=== PATIENT | female | born 1980 | race Caucasian/White ===

== ENCOUNTER 2017-10-04 08:16 | Inpatient (IN) ==
--- NOTE | 2017-10-04 09:27 | ED ---
HPI General Chief Complaint: Psychiatric Symptoms Stated Complaint: Psych Eval Time Seen by Provider: 10/05/17 12:35 History of Present Illness HPI Narrative: This patient is brought in under police Galdamez act. She is very challenging to manage or take care of. She was feeling suicidal and homicidal toward her ex-boyfriend. She is an IV drug user. She injected Dilaudid yesterday. Denies alcohol abuse. She has psychiatric problems but is not on her medications. Symptoms moderately severe. Symptoms exacerbated by drug use and noncompliance. No alleviating factors. Duration 1 week. She denies fever or physical complaints. Related Data Home Medications Medication Instructions Recorded Confirmed Klonopin 1 mg PO BID 10/04/17 10/04/17 Previous Rx's Medication Instructions Recorded cephalexin [Keflex] 500 mg PO BID 7 Days #14 cap 10/05/17 Allergies Allergy/AdvReac Type Severity Reaction Status Date / Time latex Allergy Intermediate Irritation Unverified 07/07/17 18:28 meperidine Allergy Intermediate Hives Unverified 07/07/17 18:28 risperidone Allergy Intermediate Hallucinati Unverified 07/07/17 18:28 ons divalproex sodium AdvReac Severe Hallucinati Unverified 07/07/17 18:28 ons acetaminophen AdvReac Intermediate HIVES Unverified 07/07/17 18:28 aripiprazole AdvReac Intermediate Hives Unverified 07/07/17 18:28 buspirone AdvReac Intermediate " I FEEL Unverified 07/07/17 18:28 STRANGE" hydrocodone AdvReac Intermediate HIVES Unverified 07/07/17 18:28 hydroxyzine AdvReac Intermediate HIVES Unverified 07/07/17 18:28 ketorolac AdvReac Intermediate Hives Unverified 07/07/17 18:28 quetiapine AdvReac Intermediate Seizures Unverified 07/07/17 18:28 tramadol AdvReac Intermediate HIVES Unverified 07/07/17 18:28 Review of Systems ROS: all other systems reviewed are negative [facility] Social History Social History Substance History: Active Abuse Smoking Status: Heavy tobacco smoker Tobacco Type: Cigarettes How Often Do You Have a Drink Containing Alcohol: Monthly or less Recent Travel in [facility] within the Last 8 Weeks: No Recent Out of Country Travel within the Last 8 Weeks: No Immunization History Tetanus Immunization: <5 Years Exam Narrative Exam Narrative: GENERAL: Disheveled well-developed patient in no apparent distress. SKIN: Focused skin assessment reveals no rash and nodules. Skin is Warm and dry. Has some scabbed lesions on her face. HEAD: Atraumatic. Normocephalic. EYES: Pupils equal and round. No scleral icterus. No injection or drainage. ENT: No nasal bleeding or discharge. Mucous membranes pink and moist. NECK: Trachea midline. No JVD. CARDIOVASCULAR: Regular rate and rhythm. No murmur appreciated. RESPIRATORY: No accessory muscle use. Clear to auscultation. Breath sounds equal bilaterally. GASTROINTESTINAL: Abdomen soft, non-tender, nondistended. Hepatic and splenic margins not palpable. MUSCULOSKELETAL: No obvious deformities. No clubbing. No cyanosis. No edema. NEUROLOGICAL: Awake and alert. No obvious cranial nerve deficits. Motor grossly within normal limits. Normal speech. PSYCHIATRIC: Agitated and uncooperative mood and affect; insight and judgment poor. Course Initial Documented Vital Signs Temperature 97.7 F 10/04/17 08:26 Pulse Rate 93 H 10/04/17 08:26 Respiratory Rate 22 10/04/17 08:26 Blood Pressure 132/82 10/04/17 08:26 Pulse Oximetry 97 10/04/17 08:26 Last Documented Vital Signs Temperature 97.7 F 10/06/17 05:43 Pulse Rate 84 10/06/17 05:43 Respiratory Rate 17 10/06/17 05:43 Blood Pressure 112/75 10/06/17 05:43 Pulse Oximetry 99 10/05/17 21:34 Medical Decision Making [facility] Narrative Medical decision making narrative: I have ordered some lab and urine studies to assist with medical clearance. However the patient is very uncooperative. She actively resists and refuses any type of testing. She will not allow blood work. She will not allow IV placement. She is very demanding and uncooperative. I have ordered psychiatric evaluation as she is here under Galdamez act. Given her active and persistent refusal and uncooperative nature and the fact that she is going to be a very challenging IV stick given her IV drug use history, we may not able to readily obtain studies. 10/05/2017 1135: Patient complaining of right ear pain. I examined the right ear and there are no signs of infection. Right ear exam is unremarkable. Patient was complaining of urinary symptoms and a urinalysis shows signs of infection and reflex to culture. Keflex ordered twice daily for her hospital stay 7 days and Keflex prescribed for home if patient is discharged A few hours later the patient has consented to studies and CBC and metabolic profile were drawn and normal. Patient's vital signs are normal. She is is medically stable as can be made. She will get psychiatric evaluation and disposition per psychiatry. Medical Records Medical records reviewed: Yes I reviewed the patient's medical records. Lab Data Result diagrams: 10/04/17 11:43 10/04/17 11:43 Lab Results 10/04/17 10/04/17 10/04/17 Range/Units 11:43 11:43 14:50 WBC 10.5 (4.0-11.0) th/mm3 RBC 4.35 (4.00-5.30) mil/mm3 Hgb 13.5 (11.6-15.3) gm/dL Hct 39.2 (35.0-46.0) % MCV 90.1 (80.0-100.0) fL MCH 31.1 (27.0-34.0) pg MCHC 34.5 (32.0-36.0) % RDW 12.9 (11.6-17.2) % Plt Count 297 (150-450) th/mm3 MPV 7.4 (7.0-11.0) fL Neut % (Auto) 69.4 (16.0-70.0) % Lymph % (Auto) 19.6 (9.0-44.0) % Grand % (Auto) 9.0 H (0.0-8.0) % Eos % (Auto) 1.6 (0.0-4.0) % Baso % (Auto) 0.4 (0.0-2.0) % Neut # (Auto) 7.3 (1.8-7.7) th/mm3 Lymph # (Auto) 2.1 (1.0-4.8) th/mm3 Grand # (Auto) 0.9 (0.0-0.9) th/mm3 Eos # (Auto) 0.2 (0.0-0.4) th/mm3 Baso # (Auto) 0.0 (0.0-0.2) th/mm3 WBC Differential . Differential Comment Auto diff final Sodium 137 (136-145) meq/L Potassium 3.5 (3.5-5.1) meq/L Chloride 106 (98-107) meq/L Carbon Dioxide 22.1 (21.0-32.0) meq/L Anion Gap 9 (5-15) meq/L BUN 10 (7-18) mg/dL Creatinine 0.62 (0.50-1.00) mg/dL Estimated GFR Greater than 89 (>89) mL/min Random Glucose 87 (74-106) mg/dL Calcium 8.6 (8.5-10.1) mg/dL Total Bilirubin 0.8 (0.2-1.0) mg/dL AST 25 (15-37) U/L ALT 26 (10-53) U/L Alkaline Phosphatase 81 (45-117) U/L Total Protein 7.9 (6.4-8.2) g/dL Albumin 3.8 (3.4-5.0) g/dL TSH 0.452 (0.358-3.740) uIU/mL Urine Color (Yellw/Straw) Urine Clarity (Clear) Urine pH (5.0-8.5) Ur Specific [place] (1.002-1.035) Urine Protein (Neg-Trace) mg/dL Urine Glucose (UA) (Negative) mg/dL Urine Ketones (Negative) mg/dL Urine Occult Blood (Negative) Urine Nitrate (Negative) Urine Bilirubin (Negative) Urine Urobilinogen (Less than 2) mg/dL Ur Leukocyte Esterase (Negative) Urine RBC (0-3) /hpf Urine WBC (0-5) /hpf Ur Squamous Epith Cells (0-5) /hpf Urine Bacteria (None) /hpf Urine Mucus (Occasional) /lpf Micro UA Comment Urine Culture Comments Urine Opiates Screen Pos H (Neg) Ur Barbiturates Screen Pos H (Neg) Ur Amphetamines Screen Neg (Neg) U Benzodiazepines Scrn Neg (Neg) Urine Cocaine Screen Neg (Neg) U Cannabinoids Screen Pos H (Neg) Serum Alcohol Less than 3 (0-5) mg/dL 10/05/17 Range/Units 10:00 WBC (4.0-11.0) th/mm3 RBC (4.00-5.30) mil/mm3 Hgb (11.6-15.3) gm/dL Hct (35.0-46.0) % MCV (80.0-100.0) fL MCH (27.0-34.0) pg MCHC (32.0-36.0) % RDW (11.6-17.2) % Plt Count (150-450) th/mm3 MPV (7.0-11.0) fL Neut % (Auto) (16.0-70.0) % Lymph % (Auto) (9.0-44.0) % Grand % (Auto) (0.0-8.0) % Eos % (Auto) (0.0-4.0) % Baso % (Auto) (0.0-2.0) % Neut # (Auto) (1.8-7.7) th/mm3 Lymph # (Auto) (1.0-4.8) th/mm3 Grand # (Auto) (0.0-0.9) th/mm3 Eos # (Auto) (0.0-0.4) th/mm3 Baso # (Auto) (0.0-0.2) th/mm3 WBC Differential Differential Comment Sodium (136-145) meq/L Potassium (3.5-5.1) meq/L Chloride (98-107) meq/L Carbon Dioxide (21.0-32.0) meq/L Anion Gap (5-15) meq/L BUN (7-18) mg/dL Creatinine (0.50-1.00) mg/dL Estimated GFR (>89) mL/min Random Glucose (74-106) mg/dL Calcium (8.5-10.1) mg/dL Total Bilirubin (0.2-1.0) mg/dL AST (15-37) U/L ALT (10-53) U/L Alkaline Phosphatase (45-117) U/L Total Protein (6.4-8.2) g/dL Albumin (3.4-5.0) g/dL TSH (0.358-3.740) uIU/mL Urine Color Yellow (Yellw/Straw) Urine Clarity Hazy H (Clear) Urine pH 6.0 (5.0-8.5) Ur Specific [place] 1.006 (1.002-1.035) Urine Protein Negative (Neg-Trace) mg/dL Urine Glucose (UA) Negative (Negative) mg/dL Urine Ketones Trace H (Negative) mg/dL Urine Occult Blood Moderate H (Negative) Urine Nitrate Positive H (Negative) Urine Bilirubin Negative (Negative) Urine Urobilinogen Less than 2 (Less than 2) mg/dL Ur Leukocyte Esterase Small H (Negative) Urine RBC 1 (0-3) /hpf Urine WBC 13 H (0-5) /hpf Ur Squamous Epith Cells 2 (0-5) /hpf Urine Bacteria Many H (None) /hpf Urine Mucus Few H (Occasional) /lpf Micro UA Comment Culture indicated Urine Culture Comments Culture indicated Urine Opiates Screen (Neg) Ur Barbiturates Screen (Neg) Ur Amphetamines Screen (Neg) U Benzodiazepines Scrn (Neg) Urine Cocaine Screen (Neg) U Cannabinoids Screen (Neg) Serum Alcohol (0-5) mg/dL Discharge Plan Discharge Disposition Patient Disposition: 30 Still Patient Discharge Details Diagnosis: Suicidal ideation Physicians Team ED Provider: Ryan Granado Primary Care Provider: Primary Care Kelly Becerril Attending Provider: Johnathan Peña Discharge Interventions Interventions: ED Discharge Assessment Last Done: 10/05/17 21:35 Status ED Status: Left Department Discharge Information Discharge Date/Time: 10/05/17 20:45
[2017-10-04 12:01] LABS: Baso % (Auto) 0.4 % (0.0-2.0); Eos # (Auto) 0.2 th/mm3 (0.0-0.4); Eos % (Auto) 1.6 % (0.0-4.0); Hematocrit 39.2 % (35.0-46.0); Hemoglobin 13.5 gm/dL (11.6-15.3); Lymph # (Auto) 2.1 th/mm3 (1.0-4.8); Lymph % (Auto) 19.6 % (9.0-44.0); Mean Corpuscular HGB Conc 34.5 % (32.0-36.0); Mean Corpuscular Hemoglobin 31.1 pg (27.0-34.0); Mean Corpuscular Volume 90.1 fL (80.0-100.0); Mean Platelet Volume 7.4 fL (7.0-11.0); Mono # (Auto) 0.9 th/mm3 (0.0-0.9); Neut # (Auto) 7.3 th/mm3 (1.8-7.7); Neut % (Auto) 69.4 % (16.0-70.0); Platelet Count 297 th/mm3 (150-450); Red Blood Count 4.35 mil/mm3 (4.00-5.30); Red Cell Distribution Width 12.9 % (11.6-17.2); White Blood Count 10.5 th/mm3 (4.0-11.0)
[2017-10-04 12:33] LABS: Alanine Aminotransferase 26 U/L (10-53); Albumin 3.8 g/dL (3.4-5.0); Anion Gap 9 meq/L (5-15); Aspartate Aminotransferase 25 U/L (15-37); Blood Urea Nitrogen 10 mg/dL (7-18); Calcium 8.6 mg/dL (8.5-10.1); Carbon Dioxide 22.1 meq/L (21.0-32.0); Chloride 106 meq/L (98-107); Glomerular Filtration Rate Greater Than 89 mL/min (>89); Glucose,Random 87 mg/dL (74-106); Potassium 3.5 meq/L (3.5-5.1); Sodium 137 meq/L (136-145)
[2017-10-04 12:44] LABS: Alkaline Phosphatase 81 U/L (45-117); Thyroid Stimulating Hormone 0.452 uIU/mL (0.358-3.740); Total Protein 7.9 g/dL (6.4-8.2)
[2017-10-04 15:27] LABS: Amphetamine Screen,Urine Neg (Neg); Barbiturate Screen,Urine Pos (Neg); Cannabinoid Screen,Urine Pos (Neg); Cocaine Screen,Urine Neg (Neg)
[2017-10-04 15:28] LABS: Opiate Screen,Urine Pos (Neg)
[2017-10-05 10:27] LABS: Bacteria,Urine Many /hpf; Bilirubin,Urine Negative (Negative); Clarity,Urine Hazy (Clear); Color,Urine Yellow (Yellw/Straw); Glucose,Urine (UA) Negative (Negative); Leukocyte Esterase,Urine Small (Negative); Mucus,Urine Few /lpf (Occasional); Nitrite,Urine Positive (Negative); Specific Gravity,Urine 1.006 (1.002-1.035); Squamous Epithelial Cell,Urine 2 /hpf (0-5)
--- NOTE | 2017-10-05 13:04 | ED ---
HPI - Psych - General Source: patient, old records reviewed Mode of arrival: ambulatory Limitations: no limitations - History of Present Illness MD complaint: suicidal ideation Onset (ago): day(s) Duration: constant History of same: Yes Relieving factors: none Exacerbating factors: drug use Context: recent drug abuse Associated psychiatric symptoms: depression, homicidal ideation, racing thoughts , auditory hallucinations Associated symptoms: other (ear pain) Treatments prior to arrival: none If self harm: admits thoughts of self harm - General Chief Complaint: Psychiatric Symptoms Stated Complaint: Psych Eval Time Seen by Provider: 10/05/17 12:35 - History of Present Illness HPI Narrative: Patient is a 37-year-old woman, single, unemployed on SSD, with a past psychiatric history of bipolar disorder, depression and anxiety, multiple previous psychiatric admissions (last time being in June of this year here at [facility] ), no previous suicide attempt or self-injurious behavior, with a substance use history significant for polysubstance use disorder, with no significant past medical history who presents under a Galdamez act alleging she was planning the murder of her ex boyfriend and then to kill herself. She is supposed to be on medications but does not have them with her". EMR reviewed. Currently dx with UTI and has been started on antibiotic s. Current toxicology is positive for opiates, amphetamines and cannabinoids. She admits to having used Adderall as well as a pain pill 2 days ago. Denies that she is using methamphetamine. Patient is seen in J pod. Awake, alert, oriented, disheveled appearance. Easily agitated, restless.Patient with facial grimacing noted. She states" I was diagnosed with EPS while I was in care home . It was due to medication". Patient is tearful at times. Speech is clear and logical. Mood is labile with sadness , irritability, anger. Does not appear to be responding to internal stimuli but reports hearing her name called as well as " seeing people that are not there". She continues to endorse feeling suicidal with no current plan. In terms of psychiatric treatment she has been receiving Klonopin 1 mg po BID and is prescribed by her PCP , Dr. Kumar. She denies overusing this medication and states " That is not my drug of choice and I do not abuse them ". She stopped the Cymbalta due to reports that it made her feel more aggressive. In terms of substance use she staes she has been clean for the past few months and used 2 days ago". (Kerline Mercado) - Related Data Home Medications Medication Instructions Recorded Confirmed Klonopin 1 mg PO BID 10/04/17 10/04/17 Previous Rx's Medication Instructions Recorded cephalexin [Keflex] 500 mg PO BID 7 Days #14 cap 10/05/17 Allergies Allergy/AdvReac Type Severity Reaction Status Date / Time latex Allergy Intermediate Irritation Unverified 07/07/17 18:28 meperidine Allergy Intermediate Hives Unverified 07/07/17 18:28 risperidone Allergy Intermediate Hallucinati Unverified 07/07/17 18:28 ons divalproex sodium AdvReac Severe Hallucinati Unverified 07/07/17 18:28 ons acetaminophen AdvReac Intermediate HIVES Unverified 07/07/17 18:28 aripiprazole AdvReac Intermediate Hives Unverified 07/07/17 18:28 buspirone AdvReac Intermediate " I FEEL Unverified 07/07/17 18:28 STRANGE" hydrocodone AdvReac Intermediate HIVES Unverified 07/07/17 18:28 hydroxyzine AdvReac Intermediate HIVES Unverified 07/07/17 18:28 ketorolac AdvReac Intermediate Hives Unverified 07/07/17 18:28 quetiapine AdvReac Intermediate Seizures Unverified 07/07/17 18:28 tramadol AdvReac Intermediate HIVES Unverified 07/07/17 18:28 PMFSH - History History Provided By: Law Enforcement - Medical History Medical History: Medical History (Last Updated 10/04/17 @ 08:31 by Cornelio Gama RN) ADD (attention deficit disorder) Anxiety Bipolar disorder Depression PTSD (post-traumatic stress disorder) - Tobacco History Tobacco Use In Past 30 Days: Yes Smoking Status: Current every day smoker Tobacco Type: Cigarettes - Alcohol History How Often Do You Have a Drink Containing Alcohol: 4 or more times a week - Substance Use History Substance History: Active Abuse - Travel History Recent Travel in the [place] Within the Last 8 Weeks: No Recent Travel Out of the Country Within the Last 8 Weeks: No - Immunization History Tetanus Immunization: <5 Years Psychiatric History - Psychiatric History Psychiatric Treatment History: History of Psychiatric Treatment, History Substance Abuse Treatment, History of Hospitalization in a Psychiatric Facility History of Inpatient Treatment: Yes Firearms in Home: No - Psychiatric History Has had previous psychiatric admissions last one here at [facility] in June 2107. Currently receiving medication from her PCP. (Kerline Mercado) - Legal History Past incarceration and released in june 2017. (Kerline Mercado) - Family Psychiatric History Mother with hx of bipolar disorder (Mercado,Kerline) Mental Status Examination Appearance: Disheveled Consciousness: Alert Orientation: x4 Motor Activity: Normal gait Speech: Rapid Language: Adequate Fund of Knowledge: Adequate Attention and Concentration: Inadequate Memory: Unremarkable Mood: Sad, Irritable, Other (labile) Affect: Labile Thought Process & Associations: Intact Thought Content: Hallucinations (reports hears her name called), Racing thoughts Hallucination Type: Auditory Delusion Type: None Suicidal Ideation: Yes Suicidal Plan: No Suicidal Intention: No Homicidal Ideation: Yes Homicidal Plan: No Homicidal Intention: No Insight: Poor Judgment: Impulsive Initial Documented Vital Signs Temperature 97.7 F 10/04/17 08:26 Pulse Rate 93 H 10/04/17 08:26 Respiratory Rate 22 10/04/17 08:26 Blood Pressure 132/82 10/04/17 08:26 Pulse Oximetry 97 10/04/17 08:26 Last Documented Vital Signs Temperature 98.3 F 10/05/17 03:14 Pulse Rate 94 H 10/05/17 03:14 Respiratory Rate 18 10/05/17 03:14 Blood Pressure 113/83 10/05/17 03:14 Pulse Oximetry 98 10/05/17 03:14 MDM - Psych - Diagnosis (1) Bipolar disorder Status: Acute (2) Substance induced mood disorder Status: Acute (3) Substance abuse Status: Acute - Lab Data Result diagrams: 10/04/17 11:43 10/04/17 11:43 - [facility] Narrative Medical decision making narrative: 37-year-old female with history of bipolar disorder, depression, anxiety, substance use disorder who is under a Galdamez act for both having reported planning the murder of her ex-boyfriend as well as then planning to kill herself. Patient with recent relapse and used amphetamines as well as opioids. She continues to endorse lability of mood with agitation, racing thoughts, auditory hallucinations, suicidal ideation, homicidal ideation towards her ex- boyfriend, and in contacts of recent drug use as well as not having her psychiatric medication. Patient will be admitted to inpatient psychiatric unit for further observation, for safety, for stabilization. (Kerline Mercado) - Lab Data Lab Results 10/04/17 10/04/17 10/04/17 Range/Units 11:43 11:43 14:50 WBC 10.5 (4.0-11.0) th/mm3 RBC 4.35 (4.00-5.30) mil/mm3 Hgb 13.5 (11.6-15.3) gm/dL Hct 39.2 (35.0-46.0) % MCV 90.1 (80.0-100.0) fL MCH 31.1 (27.0-34.0) pg MCHC 34.5 (32.0-36.0) % RDW 12.9 (11.6-17.2) % Plt Count 297 (150-450) th/mm3 MPV 7.4 (7.0-11.0) fL Neut % (Auto) 69.4 (16.0-70.0) % Lymph % (Auto) 19.6 (9.0-44.0) % Grand % (Auto) 9.0 H (0.0-8.0) % Eos % (Auto) 1.6 (0.0-4.0) % Baso % (Auto) 0.4 (0.0-2.0) % Neut # (Auto) 7.3 (1.8-7.7) th/mm3 Lymph # (Auto) 2.1 (1.0-4.8) th/mm3 Grand # (Auto) 0.9 (0.0-0.9) th/mm3 Eos # (Auto) 0.2 (0.0-0.4) th/mm3 Baso # (Auto) 0.0 (0.0-0.2) th/mm3 WBC Differential . Differential Comment Auto diff final Sodium 137 (136-145) meq/L Potassium 3.5 (3.5-5.1) meq/L Chloride 106 (98-107) meq/L Carbon Dioxide 22.1 (21.0-32.0) meq/L Anion Gap 9 (5-15) meq/L BUN 10 (7-18) mg/dL Creatinine 0.62 (0.50-1.00) mg/dL Estimated GFR Greater than 89 (>89) mL/min Random Glucose 87 (74-106) mg/dL Calcium 8.6 (8.5-10.1) mg/dL Total Bilirubin 0.8 (0.2-1.0) mg/dL AST 25 (15-37) U/L ALT 26 (10-53) U/L Alkaline Phosphatase 81 (45-117) U/L Total Protein 7.9 (6.4-8.2) g/dL Albumin 3.8 (3.4-5.0) g/dL TSH 0.452 (0.358-3.740) uIU/mL Urine Color (Yellw/Straw) Urine Clarity (Clear) Urine pH (5.0-8.5) Ur Specific [place] (1.002-1.035) Urine Protein (Neg-Trace) mg/dL Urine Glucose (UA) (Negative) mg/dL Urine Ketones (Negative) mg/dL Urine Occult Blood (Negative) Urine Nitrate (Negative) Urine Bilirubin (Negative) Urine Urobilinogen (Less than 2) mg/dL Ur Leukocyte Esterase (Negative) Urine RBC (0-3) /hpf Urine WBC (0-5) /hpf Ur Squamous Epith Cells (0-5) /hpf Urine Bacteria (None) /hpf Urine Mucus (Occasional) /lpf Micro UA Comment Urine Culture Comments Urine Opiates Screen Pos H (Neg) Ur Barbiturates Screen Pos H (Neg) Ur Amphetamines Screen Neg (Neg) U Benzodiazepines Scrn Neg (Neg) Urine Cocaine Screen Neg (Neg) U Cannabinoids Screen Pos H (Neg) Serum Alcohol Less than 3 (0-5) mg/dL 10/05/17 Range/Units 10:00 WBC (4.0-11.0) th/mm3 RBC (4.00-5.30) mil/mm3 Hgb (11.6-15.3) gm/dL Hct (35.0-46.0) % MCV (80.0-100.0) fL MCH (27.0-34.0) pg MCHC (32.0-36.0) % RDW (11.6-17.2) % Plt Count (150-450) th/mm3 MPV (7.0-11.0) fL Neut % (Auto) (16.0-70.0) % Lymph % (Auto) (9.0-44.0) % Grand % (Auto) (0.0-8.0) % Eos % (Auto) (0.0-4.0) % Baso % (Auto) (0.0-2.0) % Neut # (Auto) (1.8-7.7) th/mm3 Lymph # (Auto) (1.0-4.8) th/mm3 Grand # (Auto) (0.0-0.9) th/mm3 Eos # (Auto) (0.0-0.4) th/mm3 Baso # (Auto) (0.0-0.2) th/mm3 WBC Differential Differential Comment Sodium (136-145) meq/L Potassium (3.5-5.1) meq/L Chloride (98-107) meq/L Carbon Dioxide (21.0-32.0) meq/L Anion Gap (5-15) meq/L BUN (7-18) mg/dL Creatinine (0.50-1.00) mg/dL Estimated GFR (>89) mL/min Random Glucose (74-106) mg/dL Calcium (8.5-10.1) mg/dL Total Bilirubin (0.2-1.0) mg/dL AST (15-37) U/L ALT (10-53) U/L Alkaline Phosphatase (45-117) U/L Total Protein (6.4-8.2) g/dL Albumin (3.4-5.0) g/dL TSH (0.358-3.740) uIU/mL Urine Color Yellow (Yellw/Straw) Urine Clarity Hazy H (Clear) Urine pH 6.0 (5.0-8.5) Ur Specific [place] 1.006 (1.002-1.035) Urine Protein Negative (Neg-Trace) mg/dL Urine Glucose (UA) Negative (Negative) mg/dL Urine Ketones Trace H (Negative) mg/dL Urine Occult Blood Moderate H (Negative) Urine Nitrate Positive H (Negative) Urine Bilirubin Negative (Negative) Urine Urobilinogen Less than 2 (Less than 2) mg/dL Ur Leukocyte Esterase Small H (Negative) Urine RBC 1 (0-3) /hpf Urine WBC 13 H (0-5) /hpf Ur Squamous Epith Cells 2 (0-5) /hpf Urine Bacteria Many H (None) /hpf Urine Mucus Few H (Occasional) /lpf Micro UA Comment Culture indicated Urine Culture Comments Culture indicated Urine Opiates Screen (Neg) Ur Barbiturates Screen (Neg) Ur Amphetamines Screen (Neg) U Benzodiazepines Scrn (Neg) Urine Cocaine Screen (Neg) U Cannabinoids Screen (Neg) Serum Alcohol (0-5) mg/dL
[2017-10-05] MEDS ORDERED: clonazePAM 1 MG Tablet PO ONE (13:09)
[2017-10-05] MEDS ORDERED: Aluminum/Magnesium/Simethacone Susp 30 ML UDC PO PRN (13:39)
[2017-10-05] MEDS: Ibuprofen 600 MG Tablet PO SCH ×2 (13:48→21:33)
[2017-10-06] MEDS: Ibuprofen 600 MG Tablet PO SCH ×3 (05:26→21:27)
[2017-10-06] MEDS ORDERED: Aluminum/Magnesium/Simethacone Susp 30 ML UDC PO PRN (13:29)
[2017-10-06] MEDS ORDERED: Acetaminophen 325 MG Tablet PO PRN (13:29)
--- NOTE | 2017-10-06 13:59 | ECG ---
Date Performed: 10/06/2017 Time Performed: 13:37:56 PTAGE: 37 years EKG: Sinus rhythm WITH SHORT KS INTERVAL BORDERLINE ECG PREVIOUS TRACING : 07/09/2017 13.39 No significant change from previous tracing noted. DOCTOR: Michael Mathur Interpretating Date/Time 10/06/2017 13:58:08
--- NOTE | 2017-10-06 14:00 | P.HPPSY ---
Provisional Diagnosis Admission Date: October 05, 2017 13:39 [place] I.: Borderline personality disorder/trait, adjustment disorder with mixed disturbance of emotion and conduct, substance abuse, substance-induced mood disorder Competence Certification of Person's Competence To Provide Express and Informed Consent I have personally examined Ashia Mitchell, a person being served at [facility] on, October 06, 2017 1341. Express and informed consent means consent voluntarily given in writing, by a competent person, after sufficient explanation and disclosure of the subject matter involved to enable the person to make a knowing and willful decision without any element of force, fraud, deceit, duress, or other form of constraint or coercion. This person is 18 years of age or older, is not now known to be incompetent to consent to treatment with a guardian advocate, and does not have a health care surrogate or proxy currently making medical treatment decisions. I have found this person to be one of the following: [] Competent to provide express and informed consent, as defined above, for voluntary admission to this facility and is competent to provide express and informed consent for treatment. He/she has the consistent capacity to make well reasoned, willful, and knowing decisions concerning his or her medical or mental health treatment. The person fully and consistently understands the purpose of the admission for examination/placement and is fully capable of personally exercising all rights assured [place] [] Incompetent to provide express and informed consent to voluntary admission, and this is incompetent to provide express and informed consent to treatment. The person must be transferred to involuntary status and a petition for a guardian advocate filed with the Circuit Court. [xxxx] Refusing to provide express and informed consent to voluntary admission but is competent to provide express and informed consent for treatment. The person must be discharged or transferred to involuntary status. Form shall be completed within 24 hours of a person's arrival at the receiving facility and filed in the clinical record of each person: 1. Admitted on a voluntary basis 2. Permitted to provide express and informed consent to his/her own treatment 3. Allowed to transfer from involuntary to voluntary status 4. Prior to permitting a person to consent to his or her own treatment after having been previously found incompetent to consent to treatment. History of Present Illness Capacity: Lacks capacity (Patient lacks capacity sign for hospitalization patient has capacity to sign for medication) History of Present Illness: Patient is a 37-year-old white female comes here under [employer] act from [place] [employer] dated 02/09 it was sober for 5 AM that document reviewed essentially states contact was made with Ashia Mitchell who advice she was planning the murder of her ex-boyfriend and then to kill herself and is says she is supposed to be on medications but does not have them anymore. Patient seen and screened in the ED urine toxicology positive for opiates and barbiturates and marijuana. Review of our EMR shows patient has had multiple visits to this hospital she has had multiple episodes of positive urine toxicology use ranging from opiates to benzodiazepines and amphetamines cocaine. Patient states she has been disappointed by various men and relationships in her life starting with the breakup of a man who was her boyfriend then became her friend of the left her. She reluctantly acknowledges multiple incarcerations most recently being 9 months for a drug type offense getting out in June of this year. Going to stay with a boyfriend and his family house. He was arrested and put back in custodial for violation of probation she was then asked to supply money to the family house which she did not do led to her becoming somewhat homeless it appears she did call an ex-boyfriend they had did alliance party together leading to the positive toxicology she states it is only for 1 or 2 days. She states a past history of detox and rehab. She states she has had episodes of sobriety in the past when initially discussed with her she denied any past psychiatric hospitalization solely psychiatric in nature. Later in the conversation she said she had been at patient through [facility] been on multiple various antipsychotics and atypical antipsychotics and medication which is led to her developing seizure disorders and various other long-term issues. Patient taking no accountability for her behaviors or her addictions. She does states she still has a desire to kill her boyfriend and the perhaps kill herself. All she does deny voices she is vague about suicidality she is markedly labile irritable demanding and quite profane. She also appears somewhat entitled asking for help but also demanding of the help that she would like stating that her primary care doctor no longer be prescribing her Klonopin that some other doctors in the area who was prescribing her Adderall may and may not be doing that also. However then she states she would like to go to a sober living facility. When I suggested that she would perhaps benefit from an antidepressant and perhaps an atypical antipsychotic to help her with her anxiety and agitation she quickly became aggressive and angry stating that was all psychiatrist fall from placement on various medications that caused her to be where she is. She does states she would be willing to talk to her counselor related to finding his sober living. Thus at this time I feel patient continues to meet criteria for involuntary psychiatric hospitalization I will do first opinion request second opinion. I feel she does have capacity to sign for medications we will refrain from opiates and benzodiazepines or other substances of abuse. We will offer her Benadryl. I attempted to offer her Atarax but when I explained that he was similar to visual she said she cannot take that because that gives her seizures. Less we will offer her Benadryl and Tylenol. We will have our counselor talk with her about sober living facilities. R - Inpatient Certification I certify that the inpatient services were ordered in accordance with Medicare regulations governing the order. This includes certification that hospital inpatient services are reasonable and necessary and in the case of services not specified as inpatient-only under 42 CFR 419.22(n), that they are appropriately provided as inpatient services in accordance to with the 2-midnight benchmark under 43 CFR 412.3(e) I certify that inpatient psychiatric hospital services are medically necessary. Evaluation and treatment and/or diagnostic testing are expected to improve the patient's condition. The patient needs on a daily basis, active treatment furnished directly by or requiring the supervision of inpatient psychiatric facility personnel. Estimated Total Length of Stay (Days): 5 Plans for Post Hospital Care: Home Review of Systems All other systems reviewed negative except as stated in HPI Ears, Nose, Mouth, and Throat: Reports facial pain PMFSH - History History Provided By: Patient - Medical History Medical History: Medical History (Last Reviewed 10/06/17 @ 03:24 by Lakshmi Valentine RN) ADD (attention deficit disorder) Anxiety Bipolar disorder Depression PTSD (post-traumatic stress disorder) - Tobacco History Tobacco Use In Past 30 Days: Yes Smoking Status: Heavy tobacco smoker Tobacco Type: Cigarettes - Alcohol History How Often Do You Have a Drink Containing Alcohol: Monthly or less - Substance Use History Substance History: Active Abuse - Travel History Recent Travel in the [place] Within the Last 8 Weeks: No Recent Travel Out of the Country Within the Last 8 Weeks: No - Immunization History Tetanus Immunization: <5 Years Quality Measures - Psychiatric History Psychological trauma history: Patient is had multiple incarcerations Violence risk to others in the last 6 months: Patient states she wanted to kill her boyfriend Violence risk to self in the last 6 months: Patient suicidal - Substance Abuse History Drug or alcohol use in the past 12 months: Patient long history of polysubstance abuse is positive for opiates barbiturates and marijuana - Patient Strengths Patient's strengths (minimum of 2): Patient verbal able access healthcare Medications and Allergies Active Medications: Active Medications Acetaminophen (Tylenol) 650 mg PO Q4H PRN PRN Reason: Pain 1-5 or Temp >101F Al Hydrox/Mg Hydrox/Simethicone (Mag-Al Plus Susp Liq) 30 ml PO Q6H PRN PRN Reason: DYSPEPSIA Al Hydrox/Mg Hydrox/Simethicone (Mag-Al Plus Susp Liq) 30 ml PO Q6H PRN PRN Reason: DYSPEPSIA Al Hydroxide/Mg Hydroxide (Milk Of Magnesia Liq) 30 ml PO Q12H PRN PRN Reason: Mild Constipation Al Hydroxide/Mg Hydroxide (Milk Of Magnesia Liq) 30 ml PO Q12H PRN PRN Reason: Mild Constipation Cephalexin Monohydrate (Keflex) 500 mg PO BID [facility] Stop: 10/12/17 11:29 Last Admin: 10/06/17 10:31 Dose: 500 mg Diphenhydramine HCl (Benadryl) 50 mg PO Q6H PRN PRN Reason: For mild anxiety and/or EPS Diphenhydramine HCl (Benadryl) 50 mg PO HS PRN PRN Reason: INSOMNIA Ibuprofen (Motrin) 600 mg PO Q8HR [facility] Last Admin: 10/06/17 05:26 Dose: 600 mg Allergies Allergy/AdvReac Type Severity Reaction Status Date / Time latex Allergy Intermediate Irritation Unverified 07/07/17 18:28 meperidine Allergy Intermediate Hives Unverified 07/07/17 18:28 risperidone Allergy Intermediate Hallucinati Unverified 07/07/17 18:28 ons divalproex sodium AdvReac Severe Hallucinati Unverified 07/07/17 18:28 ons acetaminophen AdvReac Intermediate HIVES Unverified 07/07/17 18:28 aripiprazole AdvReac Intermediate Hives Unverified 07/07/17 18:28 buspirone AdvReac Intermediate " I FEEL Unverified 07/07/17 18:28 STRANGE" hydrocodone AdvReac Intermediate HIVES Unverified 07/07/17 18:28 hydroxyzine AdvReac Intermediate HIVES Unverified 07/07/17 18:28 ketorolac AdvReac Intermediate Hives Unverified 07/07/17 18:28 quetiapine AdvReac Intermediate Seizures Unverified 07/07/17 18:28 tramadol AdvReac Intermediate HIVES Unverified 07/07/17 18:28 Home Medications Medication Instructions Recorded Confirmed Type Klonopin 1 mg PO BID 10/04/17 10/04/17 History Results - Labs CBC & Chem 7: 10/04/17 11:43 10/04/17 11:43 Exam Vital signs: Vital Signs 10/05/17 15:00 10/05/17 21:00 10/05/17 21:34 Temperature 98.7 F 97.6 F Pulse Rate 95 H 80 Respiratory Rate 20 18 Blood Pressure 100/94 H 121/60 Pulse Oximetry 97 99 10/06/17 05:43 Temperature 97.7 F Pulse Rate 84 Respiratory Rate 17 Blood Pressure 112/75 Pulse Oximetry Intake & Output 10/05/17 10/06/17 10/06/17 18:59 06:59 18:59 Weight 64.4 kg Other: Weight On Admission 64.4 kg Narrative: Patient sitting on her bed in her room in no acute physical distress. Nurse Cecelia present throughout session, she is quite labile irritable tearful angry low no complaints of respiratory distress no complaints of chest pain or abdominal pain, patient moving all 4 extremities without difficulty Mental Status Examination Appearance: Disheveled Consciousness: Alert Orientation: x4 Motor Activity: Normal gait Speech: Pressured, Rapid Language: Adequate Fund of Knowledge: Adequate Attention and Concentration: Inadequate Memory: Unremarkable Mood: Angry, Sad, Oppositional, Irritable Affect: Other (Marked increased range and intensity) Thought Process & Associations: Intact Thought Content: Bizarre thinking, Hallucinations (reports hears her name called, though she denied this with me today), Racing thoughts Hallucination Type: Auditory (Patient denies with me today) Delusion Type: Other Suicidal Ideation: Yes Suicidal Plan: No Suicidal Intention: No Homicidal Ideation: Yes Homicidal Plan: No Homicidal Intention: No Insight: Poor Judgment: Poor Assessment and Plan - Assessment (1) Substance induced mood disorder Code(s): F19.94 - Other psychoactive substance use, unspecified with psychoactive substance-induced mood disorder Status: Acute (2) Substance abuse Code(s): F19.10 - Other psychoactive substance abuse, uncomplicated Status: Acute (3) Adjustment disorder with mixed disturbance of emotions and conduct Code(s): F43.25 - Adjustment disorder with mixed disturbance of emotions and conduct Status: Acute (4) Emotionally unstable borderline personality 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 Code(s): F60.3 - Borderline personality disorder Status: Acute - Plan Plan: Estimated LOS: 5 days At this time patient meets criteria for further involuntary psychiatric hospitalization of the [employer] act I will do first opinion request second opinion but I feel she does have capacity sign for medication. She is refusing any type of psychotropic medication at this time focusing on her Klonopin. However we will refrain from that at this time. We will have her counselor discussed with her very sober living situations Justification for Continued Inpatient Stay: At this time patient would decompensate a place to a lower level of care Discharge Planning: To be determined Request Healthcare Surrogate/Guardian Advocate?: No
[2017-10-07] MEDS: Ibuprofen 600 MG Tablet PO SCH ×3 (05:31→21:17)
--- NOTE | 2017-10-07 11:18 | P.PNPSY ---
Subjective Remarks: Patient is seen in her room with nurse Cecelia present throughout session. Patient is sitting in bed today patient more tearful somewhat histrionic crying and weeping holding her hands to her face saying she is depressed nobody loves her that she has a hole in her heart. That she is quite depressed. The anger or paranoia irritability profanity that she use yesterday is absent today. We did discuss medications she questions perhaps the use of an antidepressant I went through significant list of them and appears only when she has not tried or had a side effect from Zoloft. Was started on Zoloft 25 mg daily though I counseled her that Effexor be gradual and slow in the upcoming. I also reviewed the notes entered by a Counselor Trell Recio they are reviewed and agreed with the much appreciated. I encouraged patient again today to continue making efforts to find an appropriate placement. For now continue treatment Review of Systems All other systems reviewed negative except as stated in HPI Mental Status Examination Appearance: Disheveled Consciousness: Alert Orientation: x4 Motor Activity: Normal gait Speech: Hesitant, Slow, Other (Sobbing) Language: Adequate Fund of Knowledge: Adequate Attention and Concentration: Inadequate Memory: Unremarkable Mood: Sad, Other (With a modicum of hysteria) Affect: Other (Marked increased range and intensity) Thought Process & Associations: Intact Thought Content: Bizarre thinking (Vague today), Hallucinations (Vague today), Racing thoughts (Slowed) Hallucination Type: Auditory (Patient denies with me today) Delusion Type: Other (Somewhat vigilant) Suicidal Ideation: Yes (Vague) Suicidal Plan: No Suicidal Intention: No Homicidal Ideation: Yes (Vague) Homicidal Plan: No Homicidal Intention: No Insight: Poor Judgment: Poor Assessment and Plan - Assessment (1) Substance induced mood disorder Code(s): F19.94 - Other psychoactive substance use, unspecified with psychoactive substance-induced mood disorder Status: Acute (2) Substance abuse Code(s): F19.10 - Other psychoactive substance abuse, uncomplicated Status: Acute (3) Adjustment disorder with mixed disturbance of emotions and conduct Code(s): F43.25 - Adjustment disorder with mixed disturbance of emotions and conduct Status: Acute (4) Emotionally unstable borderline personality 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 Code(s): F60.3 - Borderline personality disorder Status: Acute - Plan Plan: Patient today showing mainly depression and tearfulness almost hysteria with this. I question the motivation behind this as opposed to her behaviors yesterday. Patient does have sufficient funds to find a decent placement. She says she is willing to do this. Though she still voices suicidality. Today she wishes for an antidepressant. We did discuss this. We will start her on Zoloft 25 mg daily. We will continue to refrain from benzodiazepines and opiates Justification for Continued Inpatient Stay: At this time patient would decompensate a place to the lower level of care Discharge Planning: To be determined Request Healthcare Surrogate/Guardian Advocate?: No
[2017-10-07] MEDS: Sertraline 50 MG Tablet PO SCH (14:05)
--- NOTE | 2017-10-07 14:05 | P.CONPSY ---
Provisional Diagnosis Admission Date: October 05, 2017 13:39 Filer I.: Borderline personality disorder/trait, adjustment disorder with mixed disturbance of emotion and conduct, substance abuse, substance-induced mood disorder History of Present Illness Service: Psychaitry Primary Care Provider: No Primary Care Physician Family Provider: No Primary Care Physician History of Present Illness: Patient is a 37-year-old white female comes here under [employer] act from [employer] dated 02/09 it was sober for 5 AM that document reviewed essentially states contact was made with Ashia Mitchell who advice she was planning the murder of her ex-boyfriend and then to kill herself and is says she is supposed to be on medications but does not have them anymore. Patient seen and screened in the ED urine toxicology positive for opiates and barbiturates and marijuana. Review of our EMR shows patient has had multiple visits to this hospital she has had multiple episodes of positive urine toxicology use ranging from opiates to benzodiazepines and amphetamines cocaine. Patient states she has been disappointed by various men and relationships in her life starting with the breakup of a man who was her boyfriend then became her friend of the left her. She reluctantly acknowledges multiple incarcerations most recently being 9 months for a drug type offense getting out in June of this year. Going to stay with a boyfriend and his family house. He was arrested and put back in custodial for violation of probation she was then asked to supply money to the family house which she did not do led to her becoming somewhat homeless it appears she did call an ex-boyfriend they had did constitution party together leading to the positive toxicology she states it is only for 1 or 2 days. She states a past history of detox and rehab. She states she has had episodes of sobriety in the past when initially discussed with her she denied any past psychiatric hospitalization solely psychiatric in nature. Later in the conversation she said she had been at patient through [employer] [facility] been on multiple various antipsychotics and atypical antipsychotics and medication which is led to her developing seizure disorders and various other long-term issues. Patient taking no accountability for her behaviors or her addictions. She does states she still has a desire to kill her boyfriend and the perhaps kill herself. All she does deny voices she is vague about suicidality she is markedly labile irritable demanding and quite profane. She also appears somewhat entitled asking for help but also demanding of the help that she would like stating that her primary care doctor no longer be prescribing her Klonopin that some other doctors in the area who was prescribing her Adderall may and may not be doing that also. However then she states she would like to go to a sober living facility. When I suggested that she would perhaps benefit from an antidepressant and perhaps an atypical antipsychotic to help her with her anxiety and agitation she quickly became aggressive and angry stating that was all psychiatrist fall from placement on various medications that caused her to be where she is. She does states she would be willing to talk to her counselor related to finding his sober living. Thus at this time I feel patient continues to meet criteria for involuntary psychiatric hospitalization I will do first opinion request second opinion. I feel she does have capacity to sign for medications we will refrain from opiates and benzodiazepines or other substances of abuse. We will offer her Benadryl. I attempted to offer her Atarax but when I explained that he was similar to visual she said she cannot take that because that gives her seizures. Less we will offer her Benadryl and Tylenol. We will have our counselor talk with her about sober living facilities. The patient is a 37-year-old woman, homeless, unemployed, supported by [facility], single, with psychiatric history of PTSD, bipolar disorder, multiple psychiatric hospitalizations, alcohol and cannabis use disorder, previous suicide attempts, no significant medical history, hospitalized on the under [employer] act from [facility] dated 02/09 it was sober for 5 AM that document reviewed essentially states contact was made with Ashia Mitchell who advice she was planning the murder of her ex-boyfriend and then to kill herself and is says she is supposed to be on medications but does not have them anymore. She was consulted to me for second opinion. On my psychiatric evaluation the patient is found in her bed, she seems to be isolated, very tearful, stated that she has been very depressed, unable to get her two feet since got out of custodial. She reports to be very depressed, but hopeful that with medications is going to get better. PMFSH - History History Provided By: Patient - Medical History Medical History: Medical History (Last Reviewed 10/06/17 @ 03:24 by Lakshmi J Tetu, RN) ADD (attention deficit disorder) Anxiety Bipolar disorder Depression PTSD (post-traumatic stress disorder) - Tobacco History Tobacco Use In Past 30 Days: Yes Smoking Status: Heavy tobacco smoker Tobacco Type: Cigarettes - Alcohol History How Often Do You Have a Drink Containing Alcohol: Monthly or less - Substance Use History Substance History: Active Abuse - Travel History Recent Travel in the [place] Within the Last 8 Weeks: No Recent Travel Out of the Country Within the Last 8 Weeks: No - Immunization History Tetanus Immunization: <5 Years Medications and Allergies Active Medications: Active Medications Acetaminophen (Tylenol) 650 mg PO Q4H PRN PRN Reason: Pain 1-5 or Temp >101F Al Hydrox/Mg Hydrox/Simethicone (Mag-Al Plus Susp Liq) 30 ml PO Q6H PRN PRN Reason: DYSPEPSIA Al Hydroxide/Mg Hydroxide (Milk Of Magnesia Liq) 30 ml PO Q12H PRN PRN Reason: Mild Constipation Cephalexin Monohydrate (Keflex) 500 mg PO BID [facility] Stop: 10/12/17 11:29 Last Admin: 10/07/17 09:05 Dose: 500 mg Diphenhydramine HCl (Benadryl) 50 mg PO Q6H PRN PRN Reason: For mild anxiety and/or EPS Last Admin: 10/07/17 09:05 Dose: 50 mg Diphenhydramine HCl (Benadryl) 50 mg PO HS PRN PRN Reason: INSOMNIA Last Admin: 10/06/17 20:30 Dose: 50 mg Ibuprofen (Motrin) 600 mg PO Q8HR [place] Last Admin: 10/07/17 05:31 Dose: 600 mg Miscellaneous (Pill Splitter) 1 each OTHER UNSCH [facility] Sertraline HCl (Zoloft) 25 mg PO DAILY [facility] Allergies Allergy/AdvReac Type Severity Reaction Status Date / Time latex Allergy Intermediate Irritation Unverified 07/07/17 18:28 meperidine Allergy Intermediate Hives Unverified 07/07/17 18:28 risperidone Allergy Intermediate Hallucinati Unverified 07/07/17 18:28 ons divalproex sodium AdvReac Severe Hallucinati Unverified 07/07/17 18:28 ons acetaminophen AdvReac Intermediate HIVES Unverified 07/07/17 18:28 aripiprazole AdvReac Intermediate Hives Unverified 07/07/17 18:28 buspirone AdvReac Intermediate " I FEEL Unverified 07/07/17 18:28 STRANGE" hydrocodone AdvReac Intermediate HIVES Unverified 07/07/17 18:28 hydroxyzine AdvReac Intermediate HIVES Unverified 07/07/17 18:28 ketorolac AdvReac Intermediate Hives Unverified 07/07/17 18:28 quetiapine AdvReac Intermediate Seizures Unverified 07/07/17 18:28 tramadol AdvReac Intermediate HIVES Unverified 07/07/17 18:28 Home Medications Medication Instructions Recorded Confirmed Type Klonopin 1 mg PO BID 10/04/17 10/04/17 History Exam Vital signs: Vital Signs 10/06/17 17:46 10/07/17 06:00 Temperature 98.6 F 98.2 F Pulse Rate 84 79 Respiratory Rate 17 16 Blood Pressure 115/80 131/77 Pulse Oximetry 98 99 Mental Status Examination Appearance: Disheveled Consciousness: Alert Orientation: x4 Motor Activity: Normal gait Speech: Hesitant, Slow, Other (Sobbing) Language: Adequate Fund of Knowledge: Adequate Attention and Concentration: Inadequate Memory: Unremarkable Mood: Sad, Other (With a modicum of hysteria) Affect: Other (Marked increased range and intensity) Thought Process & Associations: Intact Thought Content: Bizarre thinking (Vague today), Hallucinations (Vague today), Racing thoughts (Slowed) Hallucination Type: Auditory (Patient denies with me today) Delusion Type: Other (Somewhat vigilant) Suicidal Ideation: Yes (Vague) Suicidal Plan: No Suicidal Intention: No Homicidal Ideation: Yes (Vague) Homicidal Plan: No Homicidal Intention: No Insight: Poor Judgment: Poor Assessment and Plan - Assessment (1) Substance induced mood disorder Code(s): F19.94 - Other psychoactive substance use, unspecified with psychoactive substance-induced mood disorder Status: Acute (2) Substance abuse Code(s): F19.10 - Other psychoactive substance abuse, uncomplicated Status: Acute (3) Adjustment disorder with mixed disturbance of emotions and conduct Code(s): F43.25 - Adjustment disorder with mixed disturbance of emotions and conduct Status: Acute (4) Emotionally unstable borderline personality 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 Code(s): F60.3 - Borderline personality disorder Status: Acute - Plan Plan: I have seen and examined this patient, reviewed documentation, I agree and concur with Dr. Peña's assessment and plan. Consult appreciated Justification for Continued Inpatient Stay: Continue admission Request Healthcare Surrogate/Guardian Advocate?: No
[2017-10-08] MEDS: Ibuprofen 600 MG Tablet PO SCH ×3 (05:24→21:28)
[2017-10-08] MEDS: Sertraline 50 MG Tablet PO SCH (08:33)
--- NOTE | 2017-10-08 10:26 | P.PNPSY ---
Subjective Remarks: Patient seen in her room with nurse Joceline, chart reviewed, patient compliant medications, patient discussed with nurse. Patient clean and neat today it appears she is taking a shower her hair is clean and combed she is dressed appropriately. She is calmer the range and intensity were affect is softened with time she is somewhat tearful she is showing good processing. She states she is talked to the [facility] and they may be willing to take her low the wish of the positive. They state to the patient that they will be willing to accept her on 10/19 in anticipation of her getting her fondness the first part of October. Patient realizes a long delay here. She is attempting to call them again to see if this and where she her workout in agreement to go with her earlier if she type of part-time employment. We will also work with counselor Roshan related to this. Patient is showing no drug seeking behaviors today she acknowledges difficulty sleeping but is tolerating the intrusions with her roommate snoring and noise on the unit while for now continue treatment no change Review of Systems All other systems reviewed negative except as stated in HPI Mental Status Examination Appearance: Appropriate Consciousness: Alert Orientation: x4 Motor Activity: Normal gait Speech: Hesitant (Improved) Language: Adequate Fund of Knowledge: Adequate Attention and Concentration: Adequate (Fair) Memory: Unremarkable Mood: Sad, Other (Marked improvement in her affect) Affect: Other (Improvement in her range and intensity) Thought Process & Associations: Intact Thought Content: Appropriate Hallucination Type: Auditory (Patient denies with me today) Suicidal Ideation: Yes (Vague) Suicidal Plan: No Suicidal Intention: No Homicidal Ideation: Yes (Vague) Homicidal Plan: No Homicidal Intention: No Insight: Poor Judgment: Poor Assessment and Plan - Assessment (1) Substance induced mood disorder Code(s): F19.94 - Other psychoactive substance use, unspecified with psychoactive substance-induced mood disorder Status: Acute (2) Substance abuse Code(s): F19.10 - Other psychoactive substance abuse, uncomplicated Status: Acute (3) Adjustment disorder with mixed disturbance of emotions and conduct Code(s): F43.25 - Adjustment disorder with mixed disturbance of emotions and conduct Status: Acute (4) Emotionally unstable borderline personality 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 Code(s): F60.3 - Borderline personality disorder Status: Acute - Plan Plan: Patient still depressed and somewhat tearful but overall improving, is taking some responsibility for investigating placement issues for now continue treatment Justification for Continued Inpatient Stay: At this time patient would decompensate a place to a lower level of care Discharge Planning: To be determined Request Healthcare Surrogate/Guardian Advocate?: No
[2017-10-08 12:05] LABS: Anion Gap 7 meq/L (5-15); Blood Urea Nitrogen 13 mg/dL (7-18); Calcium 8.9 mg/dL (8.5-10.1); Carbon Dioxide 27.9 meq/L (21.0-32.0); Chloride 105 meq/L (98-107); Cholesterol 162 mg/dL (120-200); Glomerular Filtration Rate Greater Than 89 mL/min (>89); Glucose,Random 81 mg/dL (74-106); Potassium 4.1 meq/L (3.5-5.1); Sodium 140 meq/L (136-145); Triglycerides 116 mg/dL (42-150)
[2017-10-08 12:07] LABS: Chol/HDL Ratio 3.27 Ratio; HDL Cholesterol 49.5 mg/dL (40.0-60.0); LDL Cholesterol,Calculated 89 mg/dL (0-99)
[2017-10-08 17:15] LABS: Hemoglobin A1c 5.1 % (4.3-6.0)
[2017-10-09] MEDS: Ibuprofen 600 MG Tablet PO SCH ×3 (06:07→21:08)
--- NOTE | 2017-10-09 14:06 | P.PNPSY ---
Subjective Remarks: Patient seen in the verma with floor staff, chart reviewed, patient continues alert oriented continues focused with some consistency in behaviors and attitude. She continues to work hard to get access to [facility] in [place]. She states she is negotiated for mood of $200 for the last week before her check comes in. We will allow her the weekend to attempt to get $ 200 loan from her sister with consideration for discharge on October 12. Patient mood is good she states she would like to discontinue the Zoloft and try to go drug-free with this I will agree with her and discontinue Zoloft at this time Review of Systems All other systems reviewed negative except as stated in HPI Mental Status Examination Appearance: Appropriate Consciousness: Alert Orientation: x4 Motor Activity: Normal gait Speech: Unremarkable Language: Adequate Fund of Knowledge: Adequate Attention and Concentration: Adequate (Fair) Memory: Unremarkable Mood: Other (Euthymic to mildly dysphoric) Affect: Other (Good range and intensity) Thought Process & Associations: Intact Thought Content: Appropriate Hallucination Type: Auditory (Patient denies with me today) Delusion Type: Other (Somewhat vigilant) Suicidal Ideation: No Suicidal Plan: No Suicidal Intention: No Homicidal Ideation: No Homicidal Plan: No Homicidal Intention: No Insight: Fair Judgment: Adequate (Fair) Assessment and Plan - Assessment (1) Substance induced mood disorder Code(s): F19.94 - Other psychoactive substance use, unspecified with psychoactive substance-induced mood disorder Status: Acute (2) Substance abuse Code(s): F19.10 - Other psychoactive substance abuse, uncomplicated Status: Acute (3) Adjustment disorder with mixed disturbance of emotions and conduct Code(s): F43.25 - Adjustment disorder with mixed disturbance of emotions and conduct Status: Acute (4) Emotionally unstable borderline personality 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 Code(s): F60.3 - Borderline personality disorder Status: Acute - Plan Plan: Patient continues to improve denying suicidality voices or visions at this time. She continues to work on finding an appropriate placement perhaps through Justification for Continued Inpatient Stay: At this time patient would decompensate if not placed in an appropriate level of care Discharge Planning: To be determined perhaps placement in [place] at [facility] Request Healthcare Surrogate/Guardian Advocate?: No
[2017-10-09] MEDS: Sertraline 50 MG Tablet PO SCH (14:30)
[2017-10-10] MEDS: Ibuprofen 600 MG Tablet PO SCH ×3 (06:14→21:01)
--- NOTE | 2017-10-10 11:12 | P.PNPSY ---
Subjective Remarks: Pt seen and discussed with staff. Chart reviewed. Pt has been compliant with medication and tolerating without side effects. Mood continues to improve and she denies SI/HI. AH and paranoia have decreased. No behavioral problems on unit. Mental Status Examination Appearance: Appropriate Consciousness: Alert Orientation: x4 Motor Activity: Normal gait Speech: Unremarkable Language: Adequate Fund of Knowledge: Adequate Attention and Concentration: Adequate (Fair) Memory: Unremarkable Mood: Other (Euthymic to mildly dysphoric) Affect: Other (Good range and intensity) Thought Process & Associations: Intact, Circumstantial Thought Content: Appropriate Hallucination Type: None Delusion Type: Other (Somewhat vigilant) Suicidal Ideation: No Suicidal Plan: No Suicidal Intention: No Homicidal Ideation: No Homicidal Plan: No Homicidal Intention: No Insight: Fair Judgment: Adequate Assessment and Plan - Assessment (1) Substance induced mood disorder Code(s): F19.94 - Other psychoactive substance use, unspecified with psychoactive substance-induced mood disorder Status: Acute (2) Substance abuse Code(s): F19.10 - Other psychoactive substance abuse, uncomplicated Status: Acute (3) Adjustment disorder with mixed disturbance of emotions and conduct Code(s): F43.25 - Adjustment disorder with mixed disturbance of emotions and conduct Status: Acute (4) Emotionally unstable borderline personality 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 Code(s): F60.3 - Borderline personality disorder Status: Acute - Plan Plan: PT improving. Continue current tx plan Justification for Continued Inpatient Stay: risks of decompensation Request Healthcare Surrogate/Guardian Advocate?: No
[2017-10-11] MEDS: Ibuprofen 600 MG Tablet PO SCH ×3 (06:27→20:59)
--- NOTE | 2017-10-11 10:55 | P.PNPSY ---
Subjective Remarks: Pt seen and discussed with staff. She has been calm and cooperative on unit. No agitation or behavioral problems. She slept well last night. She denies SI/HI. She is focused on plan for sober living. Mental Status Examination Appearance: Appropriate Consciousness: Alert Orientation: x4 Motor Activity: Normal gait Speech: Unremarkable Language: Adequate Fund of Knowledge: Adequate Attention and Concentration: Adequate (Fair) Memory: Unremarkable Mood: Appropriate Affect: Appropriate Thought Process & Associations: Intact Thought Content: Appropriate Hallucination Type: None Delusion Type: None Suicidal Ideation: No Suicidal Plan: No Suicidal Intention: No Homicidal Ideation: No Homicidal Plan: No Homicidal Intention: No Insight: Fair Judgment: Adequate Assessment and Plan - Assessment (1) Substance induced mood disorder Code(s): F19.94 - Other psychoactive substance use, unspecified with psychoactive substance-induced mood disorder Status: Acute (2) Substance abuse Code(s): F19.10 - Other psychoactive substance abuse, uncomplicated Status: Acute (3) Adjustment disorder with mixed disturbance of emotions and conduct Code(s): F43.25 - Adjustment disorder with mixed disturbance of emotions and conduct Status: Acute (4) Emotionally unstable borderline personality 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 Code(s): F60.3 - Borderline personality disorder Status: Acute - Plan Plan: PT improving. Continue current tx plan Justification for Continued Inpatient Stay: risk of decompensation Request Healthcare Surrogate/Guardian Advocate?: No
[2017-10-12] MEDS: Ibuprofen 600 MG Tablet PO SCH ×3 (05:27→21:32)
--- NOTE | 2017-10-12 09:40 | P.PNPSY ---
Subjective Remarks: Patient seen and verma with floor staff, chart reviewed, patient compliant medication. [facility] appears that his sister will be paying $20 to that facility to allow her to be discharged to that facility perhaps tomorrow. Patient sold funding will come in within a week or so to continue paying for that facility. Patient denies suicidality homicidality voices or visions. She is calmer showing marked improvement in her affect and her mood Review of Systems All other systems reviewed negative except as stated in HPI Mental Status Examination Appearance: Appropriate Consciousness: Alert Orientation: x4 Motor Activity: Normal gait Speech: Unremarkable Language: Adequate Fund of Knowledge: Adequate Attention and Concentration: Adequate (Fair) Memory: Unremarkable Mood: Appropriate Affect: Appropriate Thought Process & Associations: Intact Thought Content: Appropriate Hallucination Type: None Delusion Type: None Suicidal Ideation: No Suicidal Plan: No Suicidal Intention: No Homicidal Ideation: No Homicidal Plan: No Homicidal Intention: No Insight: Fair Judgment: Adequate Assessment and Plan - Assessment (1) Substance induced mood disorder Code(s): F19.94 - Other psychoactive substance use, unspecified with psychoactive substance-induced mood disorder Status: Acute (2) Substance abuse Code(s): F19.10 - Other psychoactive substance abuse, uncomplicated Status: Acute (3) Adjustment disorder with mixed disturbance of emotions and conduct Code(s): F43.25 - Adjustment disorder with mixed disturbance of emotions and conduct Status: Acute (4) Emotionally unstable borderline personality 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 Code(s): F60.3 - Borderline personality disorder Status: Acute - Plan Plan: Patient continues to improve [facility] [place] Justification for Continued Inpatient Stay: Possible discharge tomorrow to [facility] Discharge Planning: Probable discharge tomorrow to his sober living in [facility] Request Healthcare Surrogate/Guardian Advocate?: No
--- NOTE | 2017-10-12 13:13 | P.DSPSY ---
Psychiatry Discharge Summary Inpatient Psychiatric care?: Yes Advance Directives: No Mental Health Advance Directive: No Health Care Proxy: No - Admission Admission Date: October 05, 2017 13:39 - Admission Diagnosis (1) Substance induced mood disorder Code(s): F19.94 - Other psychoactive substance use, unspecified with psychoactive substance-induced mood disorder (2) Substance abuse Code(s): F19.10 - Other psychoactive substance abuse, uncomplicated (3) Adjustment disorder with mixed disturbance of emotions and conduct Code(s): F43.25 - Adjustment disorder with mixed disturbance of emotions and conduct (4) Emotionally unstable borderline personality 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 Code(s): F60.3 - Borderline personality disorder Brief History: Patient is a 37-year-old white female comes here under [facility] act from [place] [facility] dated 02/09 it was sober for 5 AM that document reviewed essentially states contact was made with Ashia Mitchell who advice she was planning the murder of her ex-boyfriend and then to kill herself and is says she is supposed to be on medications but does not have them anymore. Patient seen and screened in the ED urine toxicology positive for opiates and barbiturates and marijuana. Review of our EMR shows patient has had multiple visits to this hospital she has had multiple episodes of positive urine toxicology use ranging from opiates to benzodiazepines and amphetamines cocaine. Patient states she has been disappointed by various men and relationships in her life starting with the breakup of a man who was her boyfriend then became her friend of the left her. She reluctantly acknowledges multiple incarcerations most recently being 9 months for a drug type offense getting out in June of this year. Going to stay with a boyfriend and his family house. He was arrested and put back in [facility] for violation of probation she was then asked to supply money to the family house which she did not do led to her becoming somewhat homeless it appears she did call an ex-boyfriend they had did constitution party together leading to the positive toxicology she states it is only for 1 or 2 days. She states a past history of detox and rehab. She states she has had episodes of sobriety in the past when initially discussed with her she denied any past psychiatric hospitalization solely psychiatric in nature. Later in the conversation she said she had been at patient through [facility] been on multiple various antipsychotics and atypical antipsychotics and medication which is led to her developing seizure disorders and various other long-term issues. Patient taking no accountability for her behaviors or her addictions. She does states she still has a desire to kill her boyfriend and the perhaps kill herself. All she does deny voices she is vague about suicidality she is markedly labile irritable demanding and quite profane. She also appears somewhat entitled asking for help but also demanding of the help that she would like stating that her primary care doctor no longer be prescribing her Klonopin that some other doctors in the area who was prescribing her Adderall may and may not be doing that also. However then she states she would like to go to a sober living facility. When I suggested that she would perhaps benefit from an antidepressant and perhaps an atypical antipsychotic to help her with her anxiety and agitation she quickly became aggressive and angry stating that was all psychiatrist fall from placement on various medications that caused her to be where she is. She does states she would be willing to talk to her counselor related to finding his sober living. Thus at this time I feel patient continues to meet criteria for involuntary psychiatric hospitalization I will do first opinion request second opinion. I feel she does have capacity to sign for medications we will refrain from opiates and benzodiazepines or other substances of abuse. We will offer her Benadryl. I attempted to offer her Atarax but when I explained that he was similar to visual she said she cannot take that because that gives her seizures. Less we will offer her Benadryl and Tylenol. We will have our counselor talk with her about sober living facilities. R Tobacco Use In Past 30 Days: Yes How Often Do You Have a Drink Containing Alcohol: Monthly or less Hospital Course: Patient's hospital course was uneventful her initial irritability and lability intrusiveness paranoia gradually resolved without the need for psychotropics as she detoxed. She has made significant effort through the weekend to find a sober living facility. This has been found a [facility] in [place]. She has worked with her sister to get the initial funding for her stay there. Today patient is alert and oriented clean and neat calm appropriate denying suicidality homicidality voices or visions it appears she is making a concerted effort for this opportunity to be successful. Patient to be discharged early tomorrow morning. [facility] to transport to [facility]. No Rx by me. Follow-up services through that facility. Absolute sobriety - Discharge Discharge Date: 10/13/17 - Discharge Diagnosis (1) Substance induced mood disorder Diagnosis: Secondary Code(s): F19.94 - Other psychoactive substance use, unspecified with psychoactive substance-induced mood disorder Status: Acute (2) Substance abuse Diagnosis: Secondary Code(s): F19.10 - Other psychoactive substance abuse, uncomplicated Status: Acute (3) Adjustment disorder with mixed disturbance of emotions and conduct Diagnosis: Principal Code(s): F43.25 - Adjustment disorder with mixed disturbance of emotions and conduct Status: Acute (4) Emotionally unstable borderline personality 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 Diagnosis: Secondary Code(s): F60.3 - Borderline personality disorder Status: Acute Discharge Disposition: [facility] ([facility]) - Discharge Instructions Discharge Diet: Regular Diet Activities You Can Perform: Regular- No Restrictions - Discharge Time > 30 minutes Mental Status Examination Appearance: Appropriate Consciousness: Alert Orientation: x4 Motor Activity: Normal gait Speech: Unremarkable Language: Adequate Fund of Knowledge: Adequate Attention and Concentration: Adequate (Fair) Memory: Unremarkable Mood: Appropriate Affect: Appropriate Thought Process & Associations: Intact Thought Content: Appropriate Hallucination Type: None Delusion Type: None Suicidal Ideation: No Suicidal Plan: No Suicidal Intention: No Homicidal Ideation: No Homicidal Plan: No Homicidal Intention: No Insight: Fair Judgment: Adequate Discharge/Advance Care Plan - Results Vital Signs: Last Vital Signs Temp 98.5 F 10/12/17 05:19 Pulse 66 10/12/17 05:19 Resp 16 10/12/17 10:55 BP 98/60 L 10/12/17 05:19 Pulse Ox 99 10/12/17 05:19 Lab Results: Laboratory Results Hemoglobin A1c 5.1 % (4.3-6.0) 10/08/17 11:02 Triglycerides 116 mg/dL (42-150) 10/08/17 11:02 Cholesterol 162 mg/dL (120-200) 10/08/17 11:02 LDL Cholesterol, Calc 89 mg/dL (0-99) 10/08/17 11:02 HDL Cholesterol 49.5 mg/dL (40.0-60.0) 10/08/17 11:02 TSH 0.452 uIU/mL (0.358-3.740) 10/04/17 11:43 Urine Culture Comments Culture indicated 10/05/17 10:00 Summary of Procedures: None done Pending Results: None - Medications Number of antipsychotic medications at discharge: 0 - Discharge Care Plan Goals to Promote Your Health: * To prevent worsening of your condition and complications * To maintain your health at the optimal level Directions to Meet Your Goals: Take your medications as prescribed Follow your dietary instruction Follow activity as directed Keep your appointments as scheduled Take your immunizations and boosters as scheduled If your symptoms worsen call your PCP, if no PCP go to Urgent Care Center or Emergency Room For 15/09 questions related to your inpatient stay or results of tests pending at discharge, please contact Dr. Johnathan Peña MD at Smoking is Dangerous to Your Health. Avoid second hand smoking
[2017-10-13] MEDS: Ibuprofen 600 MG Tablet PO SCH (05:37)
== END 2017-10-13 09:42 | disposition short-term general hospital (02) ==
LOC: NEPC 08:16 → NEDA 10-05 13:39 → H270 10-05 20:45 → H260 10-11 13:34
PROVIDERS: ADMIT Psychiatry & Neurology Psychiatry; ATTEND Psychiatry & Neurology Psychiatry